=== PATIENT | male | born 1970 | race Caucasian/White ===

== ENCOUNTER 2017-12-11 08:39 | Emergency (ER) | payer OTHER ==
[2017-12-11 11:01] VITALS: BP 147/84
--- NOTE | 2017-12-11 11:01 | RAD ---
HISTORY: Right shoulder pain COMPARISONS: None VIEWS: 4, Frontal internal rotation, external rotation, outlet, and axillary views of the right shoulder FINDINGS: BONE DENSITY: Normal. BONES: There is no displaced fracture. JOINTS: There is no arthropathy. ALIGNMENT: There is no dislocation. SOFT TISSUES: Unremarkable. OTHER FINDINGS: None. IMPRESSION: NO ACUTE OSSEOUS INJURY. IF SYMPTOMS PERSIST, RECOMMEND REPEAT IMAGING.
--- NOTE | 2017-12-25 16:00 | UC ---
Upper Extremity HPI - HPI Summary HPI Summary: 47 y/o male with h/o right arm pain 1 1/2 weeks, "pinched nerve" in sleep, no trauma, has worsened since, Aches/ pain at shoulder, posterior with intermiteent "electirc shocks" down arm 5-6 times a day, lastnihgt less than 1 minute, pain with moving shoulder, no weakness, no dropping, ? feels cooler at times? numbness at outter 2 fingers, sometimes all fingers. no neck complaints. r handed. has elevated BP today, has been following with PCP. - History of Current Complaint Chief Complaint: UCUpperExtremity Stated Complaint: ARM PAIN, HAND NUMBNESS Time Seen by Provider: 12/11/17 10:22 Hx Obtained From: Patient ?: No Onset/Duration: Sudden Onset, Lasting Days Severity Initially: Moderate Severity Currently: Mild Pain Intensity: 3 Pain Scale Used: 0-10 Numeric Character: Dull, Aching, Throbbing - Allergies/Home Medications Allergies/Adverse Reactions: Allergies Allergy/AdvReac Type Severity Reaction Status Date / Time gluten Allergy Hives Verified 12/11/17 08:50 Home Medications: Home Medications Acetaminophen [Acetaminophen Extra Strength] 500 mg PO Q4HR PRN 12/11/17 [ History Confirmed 12/11/17] Sertraline* [Zoloft*] 100 mg PO DAILY 12/11/17 [History Confirmed 12/11/17] PMH/Surg Hx/FS Hx/Imm Hx Previously Healthy: Yes - Surgical History Surgical History: Yes Surgery Procedure, Year, and Place[place] [facility] [place] History Alcohol Use: Daily Substance Use Type: None Smoking Status (MU): Heavy Every Day Tobacco Smoker Type: Cigarettes Review of Systems Motor: Decreased ROM Neurovascular: Decreased Sensation Musculoskeletal: Arthralgia, Decreased ROM, Myalgia Is Patient Immunocompromised?: No All Other Systems Reviewed And Are Negative: Yes Physical Exam Triage Information Reviewed: Yes Appearance: Well-Appearing, No Pain Distress, Well-Nourished Vital Signs: Initial Vital Signs Temp 97.9 F 12/11/17 08:45 Pulse 85 12/11/17 08:45 Resp 18 12/11/17 08:45 BP 142/99 12/11/17 08:45 Pulse Ox 98 12/11/17 08:45 Eyes: Positive: Conjunctiva Clear Neck: Positive: Supple, Nontender, No Lymphadenopathy Musculoskeletal: Positive: Other: - + subscap, + suprascap, + neers, + speed, neg tinel, + precussion over ulnar nerve reproduces symptoms. TTP over posterior shoulder. rad, ulnar pulses = b/l, fingers warm to touch, SITLT b/l Neurological Exam: Normal Psychological Exam: Normal Skin Exam: Normal Upper Extremity Course/Dx - Course Course Of Treatment: x-ray shoulder negative, f/u iwth ortho , pT script written , motrin. - Differential Dx/Diagnosis Provider Diagnoses: RC injury, R. medial epicondylitis R Discharge - Sign-Out/Discharge Documenting (check all that apply): Discharge/Admit/Transfer - Discharge Plan Condition: Good Disposition: HOME Prescriptions: Naproxen TAB* [Naprosyn 250 mg TAB*] 500 mg PO Q12HR #20 tab Patient Education Materials: Tennis Elbow (ED), Rotator Cuff Injury (ED) Referrals: Skyler Dubois MD [Medical Doctor] - Mino Veronica MD [Primary Care Provider] - Additional Instructions: - Physical therapy script written - Brace fr medial epicondylitis - Follow up with primary or orthopedics, referal and information written - shoulder exercises as included. - Motrin/ Naproxen for pain for next 5 days to decrease inflammation - Billing Disposition and Condition Condition: GOOD Disposition: HOME
== END 2017-12-11 11:02 | disposition home or self-care (01) ==
LOC: UCEAST 08:39
DX: S46.001A Unspecified injury of muscle(s) and tendon(s) of the rotator cuff of right shoulder, initial encounter (principal); X58.XXXA Exposure to other specified factors, initial encounter; Y93.9 Activity, unspecified; Y92.9 Unspecified place or not applicable; M77.01 Medial epicondylitis, right elbow; F17.210 Nicotine dependence, cigarettes, uncomplicated
CPT/HCPCS: 99212; G0463

== ENCOUNTER → 2019-06-25 11:52 | Day surgery (SDC) | payer OTHER ==
[~2019-06-25 11:52] MED LIST: Buffered Lidocaine 1% SYRIN* 1 ML/SYRINGE INTRADERM ONE; Bupivacaine 0.25% SDV* 30 ML ONE; Dexamethasone IV* 4 MG/ML 1 ML (4 MG) IV SLOW PU ONE; DiMENhydriNATE IV* 50 MG/ML VIAL IV PUSH PRN; Famotidine IV* 10 MG/ML 2 ML (20 mg) IV ONE; HYDROmorphone INJ1* 1 MG/ML SYRINGE IV PRN; Ketorolac INJ* 30 MG/ML 1 ML VIAL ONE; Lactated Ringers 1000 ML Bag* 1,000 ML IV SCH; Midazolam* 1 MG/ML 5 ML VIAL (5 MG) ONE; Naloxone* 0.4 MG/ML 1 ML VIAL IV PRN; Ondansetron INJ* 2 MG/ML VIAL IV PRN; Ondansetron INJ* 2 MG/ML VIAL ONE; Propofol* 10 MG/ML 20 ML BTL ONE; Rocuronium* 10 MG/ML VIAL ONE; Sugammadex * 200 MG/2 ML VIAL IV PUSH ONE; ceFAZolin 2 GM in NS PREMIX(*) 2 GM/100 ML BAG IVPB ONE; fentaNYL* 50 MCG/ML 2 ML VIAL (100 MCG VIAL) IV PRN; fentaNYL* 50 MCG/ML 2 ML VIAL (100 MCG VIAL) ONE; oxyCODONE/Acetamin 5/325 MG* TAB PO PRN
[2019-06-25 17:41] VITALS: BP 117/76
--- NOTE | 2019-06-26 03:45 | OP ---
DATE OF OPERATION: 06/25/19 [facility] DATE OF : 74 SURGEON: Myriam Alcala MD TEXTILE DYER: MARYCARMEN Falk. An printer's assistant was needed for the entirety of the case to help with positioning, retraction, utilized throughout all portions of the case. ANESTHESIOLOGIST: Dr. Irizarry. ANESTHESIA: General with interscalene block. PRE-OP DIAGNOSIS: Left shoulder acromioclavicular joint arthritis with a possible partial thickness tear of the rotator cuff and bicipital tendinitis. POST-OP DIAGNOSES: Left shoulder acromioclavicular joint arthritis with a possible partial thickness tear of the rotator cuff and bicipital tendinitis. OPERATIVE PROCEDURE: Left shoulder arthroplasty with: 1. Extensive glenohumeral debridement including biceps tenotomy and debridement of the anterior and posterior superior labrum. 2. Subacromial decompression with acromioplasty. 3. Rotator cuff repair using Regeneten patch, size large. 4. Distal clavicle incision, arthroscopic. COMPLICATIONS: None. IMPLANTS USED: Regeneten patch size large. INDICATIONS: Sb Marley is a 48-year-old male with persistent shoulder pain. He failed conservative management. He is elected to proceed with surgical treatment. The risks and benefits were discussed at length including but not limited to bleeding; infection; damage to nerves, vessels, surrounding structures; wound nonhealing; persistent pain; need for further surgery; scarring; stiffness; incomplete relief of symptoms; risks of anesthesia. DESCRIPTION OF PROCEDURE: The patient was greeted in the preoperative area by the attending surgeon. The correct extremity was marked and consent was confirmed. The patient underwent interscalene nerve block by anesthesiologist, after which he was brought back to the operating suite and placed in the supine position on the operating table. He then underwent general anesthesia and endotracheal intubation after which he was placed in the lateral decubitus position with an axial roll. All bony prominences were padded and secured with a pegboard. The operative arm was draped with 10 pounds of traction. The shoulder was then prepped and draped in the usual sterile fashion with chlorhexidine soap, scrub, and alcohol wipe, and a final prep with ChloraPrep. After appropriate surgical pause indicating side, site, procedure, and administration of antibiotics, the standard postero-lateral portal was made sharply with 11 blade. The scope was introduced into the joint. Joint was examined. There were grade 0-1 change in the glenohumeral joint. There was unstable fraying of the anterior, posterior, and superior labrum, evidence of a SLAP type 2 tear. The undersurface of the supraspinatus had some partial thickness tearing. The anterior portal was made in an outside-in fashion. A shaver was used debride back the anterior, posterior and superior labrum. The specimen was then tenotomized. The undersurface of the rotator cuff was debrided back. Attention was then directed to the subacromial space. With the scope positioned in the subacromial space, the lateral portal was made in an outside-in fashion. Shaver was used to debride back the abundant thick bursa that was present. The rotator cuff was then visualized, it curved and there was no evidence of full thickness tearing. Attention was directed to the acromioplasty. The undersurface of the acromion was skeletonized using an electrocautery device. A 4-0 oval bur was then used to do an acromioplasty. The AC joint was examined. There was obvious stenosis that was present. The bur was brought to the anterior portal and distal 8 mm of the clavicle were then resected with care to not damage the ligaments. After this was done, attention was directed to the rotator cuff. The decision was made to proceed with Regeneten patch for a rotator cuff repair. The size large Regeneten patch was then brought to the field. Through a separate stab incision, a cannula was placed to allow for placement of tendon juju to secure to the tendon and then a bone PEEK juju to secure it the bone. The shoulder was taken through gentle range of motion and found to be well attached and then the wound was copiously irrigated. Final images were obtained. The portal was closed with 3- 0 nylon in an interrupted fashion. Sterile dressings were applied. A Cryo/Cuff and a regular Sling were applied. He was awoken from anesthesia and transferred to the PACU in stable condition. POSTOPERATIVE PLAN: He will be nonweightbearing. He will have a range of motion as tolerated. Discharged on pain medication. DVT prophylaxis was considered, but deferred due to no previous personal or family history. I will see the patient back in 10 to 14 days. [id number]/[facility] #: [id number] JOSE
== END | disposition home or self-care (01) ==
LOC: OR 11:52
PROVIDERS: ATTEND Orthopaedic Surgery
DX: M75.42 Impingement syndrome of left shoulder (principal); M19.212 Secondary osteoarthritis, left shoulder; M75.22 Bicipital tendinitis, left shoulder; M75.112 Incomplete rotator cuff tear or rupture of left shoulder, not specified as traumatic; E11.9 Type 2 diabetes mellitus without complications; Z79.84 Long term (current) use of oral hypoglycemic drugs; F41.8 Other specified anxiety disorders; F17.210 Nicotine dependence, cigarettes, uncomplicated; G89.18 Other acute postprocedural pain
CPT/HCPCS: C1713; J0690; J1885; J2250; J2405; J2704; J3010; J3490

== ENCOUNTER 2019-10-23 19:39 | Emergency (ER) | payer OTHER ==
[2019-10-24] MEDS ORDERED: Tetan/Diph/Pertus SYR(Tdap)* 0.5 ML SYR(BOOSTRIX) use SYR contains LATEX IM ONE (00:14)
--- NOTE | 2019-10-24 00:14 | ED ---
Laceration/Wound HPI - HPI Summary HPI Summary: Patient complains of laceration to distal fifth digit of left hand from a can while opening it. Denies any other injury, symptoms or pain. Tetanus status up -to-date. - History of Current Complaint Stated Complaint: L PINKY LAC PER PT Time Seen by Provider: 10/24/19 00:09 Hx Obtained From: Patient Mechanism of Injury: Sharp/Blunt Trauma Aggravating: Movement Timing: Constant Onset Severity: Severe Current Severity: Moderate Pain Intensity: 7 Pain Scale Used: 0-10 Numeric Associated Signs & Symptoms: Negative - Allergy/Home Medications Allergies/Adverse Reactions: Allergies Allergy/AdvReac Type Severity Reaction Status Date / Time gluten Allergy Hives Verified 06/25/19 12:34 Home Medications: Home Medications Cetirizine* [ZyrTEC 10 MG TAB*] 10 mg PO QAM PRN 05/26/13 [History Confirmed ] Acetaminophen [Acetaminophen Extra Strength] 500 mg PO Q4HR PRN 12/11/17 [ History Confirmed 06/25/19] Sertraline* [Zoloft*] 100 mg PO QPM 12/11/17 [History Confirmed 06/25/19] Cbd Gummy 1 gum PO QPM 06/16/19 [History Confirmed 06/25/19] Naproxen TAB* [Naprosyn 250 mg TAB*] 500 mg PO Q12HR PRN 06/16/19 [History Confirmed 06/25/19] Trazodone HCl 100 mg PO QPM 06/25/19 [History Confirmed 06/25/19] PMH/Surg Hx/FS Hx/Imm Hx Endocrine/Hematology History: Reports: Hx Diabetes - [place] DIET CONTROLLED, NO MEDS Denies: Hx Bone Marrow Disease, Hx Sickle Cell Disease, Hx Thyroid Disease, Hx Anemia Cardiovascular History: Denies: Hx Angina, Hx Cardiomegaly, Hx Congestive Heart Failure, Hx Coronary Artery Disease, Hx Hypertension, Hx Pacemaker/ICD, Hx Peripheral Vascular Disease, Hx Rheumatic Fever, Hx Valvular Heart Disease, Other Cardiovascular Problems/Disorders Respiratory History: Denies: Hx Asthma, Hx Pulmonary Edema, Hx Pulmonary Embolism, Hx Sleep Apnea , Other Respiratory Problems/Disorders GI History: Denies: Hx Cirrhosis, Hx Crohn's Disease, Hx Gastroesophageal Reflux Disease , Hx Hiatal Hernia, Hx Irritable Bowel, Hx Jaundice, Hx Ulcer, Other GI Disorders History: Denies: Hx Kidney Infection, Hx Kidney Stones, Other Problems/Disorders Musculoskeletal History: Reports: Hx Arthritis - LEFT SHOULDER Denies: Hx Bursitis, Hx Tendonitis, Other Musculoskeletal History Sensory History: Reports: Hx Cataracts - BILAT-CORRECTED W/ SURGERY Denies: Hx Contacts or Glasses, Hx Glaucoma, Hx Hearing Aid Opthamlomology History: Reports: Hx Cataracts - BILAT-CORRECTED W/ SURGERY Denies: Hx Contacts or Glasses, Hx Glaucoma Neurological History: Denies: Hx Headaches, Hx Migraine, Hx Nerve Disease, Hx Seizures, Other Neuro Impairments/Disorders Psychiatric History: Reports: Hx Anxiety - [place] ZOLOFT, Hx Depression - [place] ZOLOFT Denies: Hx Panic Disorder - Cancer History Hx Chemotherapy: No - Surgical History Surgery Procedure, Year, and Place: CERVICAL DISCECTOMY(WITH METAL PINS), 2011, ; BILATERAL CATARACTS; TONSILECTOMY Hx Anesthesia Reactions: No Infectious Disease History: No Infectious Disease History: Denies: Hx Hepatitis, Traveled Outside the [place] in Last 30 Days - Family History Known Family History: Positive: Non-Contributory - Social History Alcohol Use: Weekly Alcohol Amount: PINT OF WHISKEY "ONCE IN A WHILE" Substance Use Type: Reports: None Substance Use Comment - Amount & Last Used: CBD OIL Smoking Status (MU): Heavy Every Day Tobacco Smoker Type: Cigarettes Amount Used/How Often: 1 PPD X 30 YRS Review of Systems Constitutional: Negative Eyes: Negative ENT: Negative Cardiovascular: Negative Respiratory: Negative Gastrointestinal: Negative Genitourinary: Negative Musculoskeletal: Negative Skin: Other Neurological/Mental Status: Negative Psychological: Normal All Other Systems Reviewed And Are Negative: Yes Physical Exam - Summary Physical Exam Summary: Flexion and extension intact of each individual joint of digit of left hand. Triage Information Reviewed: Yes Vital Signs On Initial Exam: Initial Vitals Temp Pulse Resp BP Pulse Ox 98.5 F 105 21 164/96 96 10/23/19 19:41 10/23/19 19:41 10/23/19 19:41 10/23/19 19:41 10/23/19 19:41 Vital Signs Reviewed: Yes Appearance: Positive: Well-Appearing Skin: Positive: Warm Head/Face: Positive: Normal Head/Face Inspection Eyes: Positive: Normal Neck: Positive: Supple Respiratory/Lung Sounds: Positive: Clear to Auscultation Cardiovascular: Positive: Normal Abdomen Description: Positive: Nontender Musculoskeletal: Positive: Normal Neurological: Positive: Normal Psychiatric: Positive: Normal AVPU Assessment: Alert - Jessica Coma Scale Best Eye Response: 4 - Spontaneous Best Motor Response: 6 - Obeys Commands Best Verbal Response: 5 - Oriented Coma Scale Total: 15 Procedures - Sedation Patient Received Moderate/Deep Sedation with Procedure: No - Laceration/Wound Repair 1 Location: upper extremity - fifth digit left hand. Description: Linear Anesthesia: Digital, 1.0% Length, Depth and Shape: 2cm x .5cm Irrigated w/ Saline (ccs): 300 Laceration/Wound Explored: clean Number of Sutures: 7 - 4. 0 Ethilon. Layer Closure?: No Sterile Dressing Applied?: No Diagnostics - Vital Signs Vital Signs Temp Pulse Resp BP Pulse Ox 10/23/19 22:47 99.3 F 95 20 132/82 95 10/23/19 19:41 98.5 F 105 21 164/96 96 - Laboratory Lab Statement: Any lab studies that have been ordered have been reviewed, and results considered in the medical decision making process. Laceration Repair Course/Dx - Course Course Of Treatment: Patient complains of laceration to distal fifth digit of left hand from a can while opening it. Denies any other injury, symptoms or pain. Tetanus status up-to-date. Vital signs within normal limits. Wound cleaned and reapproximated. - Clinical Impression Provider Diagnoses: Laceration of finger, left Discharge ED - Sign-Out/Discharge Documenting (check all that apply): Patient Departure - Discharge Plan Condition: Stable Disposition: HOME Patient Education Materials: Finger Laceration (ED) Referrals: Mino Veronica MD [Primary Care Provider] - Additional Instructions: Sutures out in 10 days. May wash with warm running water and soap. Do not submerge for a few days. Keep finger clean and dry protected when not washing. Follow up with primary care. Return to the ED for any new or worsening symptoms. - Billing Disposition and Condition Condition: STABLE Disposition: Home
[2019-10-24 01:22] VITALS: BP 147/96
== END 2019-10-24 01:20 | disposition home or self-care (01) ==
LOC: ED 19:39
DX: S61.217A Laceration without foreign body of left little finger without damage to nail, initial encounter (principal); W26.8XXA Contact with other sharp object(s), not elsewhere classified, initial encounter; Y92.9 Unspecified place or not applicable; E11.9 Type 2 diabetes mellitus without complications; F41.9 Anxiety disorder, unspecified; F17.210 Nicotine dependence, cigarettes, uncomplicated
CPT/HCPCS: 12001; 90471; 90715; 99282